=== PATIENT | male | born 1975 | race Caucasian/White ===

== ENCOUNTER → 2025-01-10 | Outpatient (CLI) | payer SELFPAY ==
--- NOTE | 2025-01-10 08:49 | EKG12_ITS ---
Test Reason : PREOP Blood Pressure : */* mmHG Vent. Rate : 66 BPM Atrial Rate : 66 BPM P-R Int : 142 ms QRS Dur : 88 ms QT Int : 384 ms P-R-T Axes : 45 15 45 degrees QTcB Int : 402 ms Normal sinus rhythm Normal ECG Confirmed by Mikal Mccallum ([id number]), commercial production editor LEXUS JAMES ([id number]) on 01/11/2025 5:41:46 AM Referred By: Abdirashid Miner Confirmed By: Mikal Mccallum
[2025-01-10 09:58] LABS: Hematocrit 47.2 % (40-54); Hemoglobin 16.0 g/dL (13.0-16.5); Immature Granulocytes Count 0.010 X10^3/uL (0.0-0.0); Mean Corp Hgb Conc 33.9 g/dL (32-36); Mean Corpuscular Volume 87.9 fL (80-94); Mean Platelet Vol. 10.1 fl (6.2-12.0); NRBC Flagged by Analyzer 0 % (0-5); Platelet Count 225 K/mm3 (150-450); RBC Distribution Width CV 12.3 % (11.6-14.6); RBC Distribution Width SD 39.9 fl (35.1-43.9); Red Blood Count 5.37 M/mm3 (4.6-6.2); White Blood Count 5.6 K/mm3 (4.4-11.0)
[2025-01-10 10:53] LABS: Albumin, Serum 4.3 g/dL (3.5-5.0); Anion Gap 10 (5-15); BUN 17 mg/dL (4-19); BUN/Creat Ratio 25.1 RATIO (10-20); Calcium,Total 9.5 mg/dL (7.6-11.0); Carbon Dioxide 25.9 mmol/L (21.0-32.0); Chloride 106 mmol/L (98-108); Glucose 110 mg/dL (70-99); Potassium 4.3 mmol/L (3.3-5.1)
== END | disposition home or self-care (01) ==
PROVIDERS: Referring Provider Specialist; Visit Provider Specialist
DX: Z01.818 Encounter for other preprocedural examination (principal); M16.12 Unilateral primary osteoarthritis, left hip; M25.852 Other specified joint disorders, left hip
CPT/HCPCS: 36415; 80048; 82040; 85025; 93005